=== PATIENT | female | born 1980 | race Caucasian/White ===

== ENCOUNTER → 2020-05-07 11:52 | Outpatient (BNVA) | payer OTHER, SELFPAY | PROVIDERS: PCP Internal Medicine; Referring Provider Internal Medicine; Visit Provider Internal Medicine | DX: E04.2 Nontoxic multinodular goiter (principal); E55.9 Vitamin D deficiency, unspecified; E66.01 Morbid (severe) obesity due to excess calories; Z68.41 Body mass index [BMI] 40.0-44.9, adult; Z98.890 Other specified postprocedural states | CPT/HCPCS: 99214 ==

== ENCOUNTER 2020-06-19 12:31 | Outpatient (REF) | payer OTHER, SELFPAY ==
[2020-06-19 14:42] LABS: Hematocrit 44.8 % (37-47); Hemoglobin 14.8 g/dl (12.0-16.0); Mean Corpuscular Hemoglobin 29.9 pg (27.0-33.0); Mean Corpuscular Volume 90.5 fL (80-98); Mean Platelet Volume 10.8 fL (9.4-12.3); Platelet Count 336 X10*3/uL (160-400); Red Blood Count 4.95 X10*6/uL (4.20-5.50); Red Cell Distribution Width 12.2 % (11.0-16.0); White Blood Count 10.7 X10*3/uL (4.8-10.8)
[2020-06-19 15:08] LABS: Alanine Aminotransferase 43 U/L (0-31); Albumin Level 4.4 g/dL (3.5-5.0); Alkaline Phosphatase 81 U/L (39-117); Anion Gap 11 (12-20); Aspartate Amino Transferase 23 U/L (5-31); Bilirubin Total 0.4 mg/dL (0.0-1.0); Blood Urea Nitrogen 11 mg/dL (9-16); Calcium 8.7 mg/dL (8.4-10.2); Carbon Dioxide 26 mmol/L (22-29); Chloride 105 mmol/L (96-108); Cholesterol 238 mg/dL; Estimated Glomerular Filt Rate > 60; Glucose Fasting 93 mg/dL (60-99); HDL Cholesterol 48 mg/dL; LDL Cholesterol Calculated 161 mg/dl; Potassium 4.4 mmol/l (3.3-5.1); Sodium 138 mmol/L (135-145); Total Protein 6.9 g/dL (6.5-8.0); Triglycerides 145 mg/dL
[2020-06-19 15:32] LABS: Thyroid Stimulating Hormone 1.01 uIU/mL (0.32-4.0)
== END 2020-06-19 12:32 | disposition home or self-care (01) ==
LOC: HO.HMGCLDS 12:31
PROVIDERS: PCP Internal Medicine; Visit Provider Internal Medicine
DX: Z00.00 Encounter for general adult medical examination without abnormal findings (principal); E78.5 Hyperlipidemia, unspecified; E66.3 Overweight; E04.1 Nontoxic single thyroid nodule; F17.200 Nicotine dependence, unspecified, uncomplicated
CPT/HCPCS: 36415; 80053; 80061; 84443; 85027

== ENCOUNTER 2021-01-15 10:07 | Outpatient (REF) | payer OTHER, SELFPAY ==
[2021-01-15 11:18] LABS: MANUAL DIFF FLAG NO
[2021-01-15 11:29] LABS: Basophils Absolute Auto 0.1 X10*3/uL (0.0-0.2); Basophils Percent Auto 0.8 % (0-2); Eosinophils Absolute Auto 0.2 X10*3/uL (0.0-0.4); Eosinophils Percent Auto 1.8 % (0-4); Hemoglobin 13.7 g/dl (12.0-16.0); Imm Gran Abs Auto 0.05 X10*3/uL (0.00-0.03); Imm Gran Pct Auto 0.5 % (0.0-0.4); Lymphocytes Absolute Auto 3.9 X10*3/uL (1.2-4.9); Lymphocytes Percent Auto 37.2 % (20-40); Mean Corpuscular HGB Conc 32.6 g/dl (31.0-35.0); Mean Corpuscular Hemoglobin 30.1 pg (27.0-33.0); Mean Corpuscular Volume 92.3 fL (80-98); Mean Platelet Volume 10.6 fL (9.4-12.3); Monocytes Absolute Auto 0.8 X10*3/uL (0.1-1.2); Monocytes Percent Auto 7.3 % (2-11); Neutrophils Absolute Auto 5.5 X10*3/uL (2.0-8.3); Neutrophils Percent Auto 52.4 % (45-73); Platelet Count 322 X10*3/uL (160-400); Red Blood Count 4.55 X10*6/uL (4.20-5.50); Red Cell Distribution Width 12.2 % (11.0-16.0); White Blood Count 10.5 X10*3/uL (4.8-10.8)
[2021-01-15 12:21] LABS: TSH reflex Free T4 0.75 uIU/mL (0.32-4.0)
[2021-01-15 12:49] LABS: Alanine Aminotransferase 40 U/L (0-31); Alkaline Phosphatase 76 U/L (39-117); Anion Gap 12 (12-20); Aspartate Amino Transferase 25 U/L (5-31); Bilirubin Total 0.4 mg/dL (0.0-1.0); Blood Urea Nitrogen 13 mg/dL (9-16); Calcium 8.8 mg/dL (8.4-10.2); Carbon Dioxide 24 mmol/L (22-29); Chloride 107 mmol/L (96-108); Cholesterol 201 mg/dL; Estimated Glomerular Filt Rate > 60; Glucose Fasting 86 mg/dL (60-99); HDL Cholesterol 48 mg/dL; LDL Cholesterol Calculated 125 mg/dl; Potassium 4.5 mmol/L (3.3-5.1); Sodium 138 mmol/L (135-145); Total Protein 6.5 g/dL (6.5-8.0); Triglycerides 143 mg/dL
== END 2021-01-15 10:08 | disposition home or self-care (01) ==
LOC: HO.HMGCLDS 10:07
PROVIDERS: PCP Internal Medicine; Visit Provider Nurse Practitioner Psychiatric/Mental Health
DX: F31.81 Bipolar II disorder (principal)
CPT/HCPCS: 36415; 80053; 80061; 84443; 85025

== ENCOUNTER 2022-03-08 10:08 | Outpatient (REF) | payer OTHER, SELFPAY ==
[2022-03-08 11:22] LABS: MANUAL DIFF FLAG NO
[2022-03-08 11:42] LABS: Estimated Average Glucose 105 mg/dL; Hemoglobin A1c % 5.3 %
[2022-03-08 11:45] LABS: Basophils Absolute Auto 0.1 X10*3/uL (0.0-0.2); Basophils Percent Auto 0.7 % (0-2); Eosinophils Absolute Auto 0.2 X10*3/uL (0.0-0.4); Eosinophils Percent Auto 2.6 % (0-4); Hematocrit 43.4 % (37.0-47.0); Hemoglobin 14.3 g/dl (12.0-16.0); Imm Gran Abs Auto 0.03 X10*3/uL (0.00-0.03); Imm Gran Pct Auto 0.3 % (0.0-0.4); Lymphocytes Absolute Auto 3.6 X10*3/uL (1.2-4.9); Lymphocytes Percent Auto 39.6 % (20-40); Mean Corpuscular HGB Conc 32.9 g/dl (31.0-35.0); Mean Platelet Volume 10.8 fL (9.4-12.3); Monocytes Absolute Auto 0.6 X10*3/uL (0.1-1.2); Monocytes Percent Auto 6.6 % (2-11); Neutrophils Absolute Auto 4.5 x10*3/uL (2.0-8.3); Neutrophils Percent Auto 50.2 % (45-73); Platelet Count 311 X10*3/uL (160-400); Red Blood Count 4.77 X10*6/uL (4.20-5.50); Red Cell Distribution Width 12.3 % (11.0-16.0)
[2022-03-08 12:20] LABS: TSH reflex Free T4 0.67 uIU/mL (0.32-4.0)
[2022-03-08 12:30] LABS: Alanine Aminotransferase 33 U/L (0-31); Albumin Level 4.2 g/dL (3.5-5.0); Alkaline Phosphatase 72 U/L (39-117); Anion Gap 14 (12-20); Aspartate Amino Transferase 26 U/L (5-31); Bilirubin Total 0.3 mg/dL (0.0-1.0); Blood Urea Nitrogen 14 mg/dL (9-16); Calcium 9.2 mg/dL (8.4-10.2); Carbon Dioxide 24 mmol/L (22-29); Chloride 108 mmol/L (96-108); Cholesterol 228 mg/dL; Estimated Glomerular Filt Rate > 60; Glucose Fasting 95 mg/dL (60-99); HDL Cholesterol 48 mg/dL; LDL Cholesterol Calculated 159 mg/dl; Potassium 4.3 mmol/L (3.3-5.1); Sodium 142 mmol/L (135-145); Total Protein 6.8 g/dL (6.5-8.0); Triglycerides 109 mg/dL
== END 2022-03-08 10:09 | disposition home or self-care (01) ==
LOC: HO.HMGCLDS 10:08
PROVIDERS: PCP Internal Medicine; Visit Provider Nurse Practitioner Psychiatric/Mental Health
DX: F31.81 Bipolar II disorder (principal)
CPT/HCPCS: 36415; 80053; 80061; 82947; 83036; 84443; 85025

== ENCOUNTER 2023-02-25 11:15 | Outpatient (AMB) | payer OTHER, SELFPAY ==
[2023-02-25 11:24] VITALS: BP 130/64; PULSE 90; TEMP 36.8; O2SAT 98
--- NOTE | 2023-02-25 11:24 | MHC.OFFWIV ---
Intake Vital Signs 02/25/23 11:24 Height 5 ft 9 in BP 130/64 Blood Pressure Location Lt brachial Position Sitting Pulse 90 Pulse Source Pulse Oximeter Temp 98.2 F Temp Source Oral Pulse Oximetry (%) 98 Oxygen Delivery Method Room Air Intake Visit Reasons: EST/swollen right eye Intake Note: pt is here for c/o right swollen eye Patient Tobacco Use Status: Never used Tobacco Allergies No Known Allergies [No Known Allergies*] Allergy (Verified 02/25/23 11:24) Do you need a note to return to daycare/school/sports/work: No HPI HPI Comments History of Present Illness Details This is a 42-year-old female who presents to the office today for sick visit. Patient complaining of right upper eyelid swelling x4 days. Patient states she woke up with swelling of her right eyelid about 4 days ago. She has been utilizing warm and cool compresses, oral antihistamines, and [id number] eye drops without relief. Patient reports pain of the upper eyelid but no eyeball pain. She denies any vision changes. She denies any eye drainage. Patient otherwise feeling well. [facility] Medical History Anxiety Bipolar disorder Multinodular thyroid Obesity Vitamin D deficiency Surgical History Left breast abscess Family History Mother Myocardial infarct Heart failure CAD (coronary artery disease) Breast cancer Social History Alcohol intake: never Patient Tobacco Use Status: Never used Tobacco Cigarette Packs Per Day: 1 Cigarettes Per Day: 20.0 Years Smoked: 22 Substance Use Type: Marijuana Review of Systems Const All systems reviewed & are unremarkable except as noted in HPI and below Reports no additional complaints Eyes Details: +eyelid swelling Reports no additional complaints, Denies change in vision, Denies eye discharge, Denies dry eyes, Denies loss of vision and Denies other visual disturbances ENT Reports no additional complaints Card Reports no additional complaints Resp Reports no additional complaints GI Reports no additional complaints Musc Reports no additional complaints Skin/Breast Reports system reviewed and no additional complaints, except as documented Neuro Reports no additional complaints and Denies loss of vision Psych Reports no additional complaints Endo Reports no additional complaints Vinay/Lymph Reports no additional complaints Aller/Immun Reports no additional complaints Physical Exam Vital Signs: Last Vital Signs Temp 98.2 F 02/25/23 11:24 Pulse 90 02/25/23 11:24 BP 130/64 02/25/23 11:24 Pulse Ox 98 02/25/23 11:24 Oxygen Delivery Method Room Air 02/25/23 11:24 Const General: cooperative, healthy appearing, no acute distress and well developed Orientation/consciousness: patient oriented x3 HEENT Head: Yes normal to inspection Ears: hearing grossly normal bilaterally General nose exam: Normal external nose present Face and sinus: Yes normal facial exam Mouth: Normal oral and palatal mucosa present Eyes Other: Swelling of the right upper eyelid without any erythema. + Internal hordeolum of the right upper eyelid. Visual Cerda: normal visual cerda by confrontation Eyelids: Yes eyelid abnormality (Right eyelid swelling.) Conjunctivae: conjunctivae normal Sclerae: sclerae normal Corneas: corneas normal Pupils: Equal, round and reactive pupils present EOM: EOMs intact bilaterally Resp Effort & Inspection: normal respiratory effort and no respiratory distress Auscultation: clear to auscultation bilaterally Cardio Rate: regular rate Rhythm: regular rhythm Heart sounds: no gallops, no murmurs and no rubs Peripheral pulses: Peripheral pulses 2+ throughout GI Inspection: No distended Palpation (GI): Soft to palpation and nontender Auscultation: normal bowel sounds Skin General skin exam: no rashes or lesions noted Neuro General: patient oriented x3 Cranial nerves: Yes CN's II-XII intact bilaterally and Yes Equal, round and reactive pupils present Gait exam (Neuro): Normal gait present Motor exam (neuro): 5/5 motor strength present throughout Extrem General: Yes normal to inspection, Yes full ROM and Yes no clubbing, cyanosis or edema Psych Appearance: grossly normal Mental Status: mental status grossly normal Assessment & Plan Assessment & Plan (1) Hordeolum: Code(s): H00.019 - Hordeolum externum unspecified eye, unspecified eyelid Plan: This is a 42-year-old female presenting to the office with right upper eyelid swelling. History and physical most consistent with an internal hordeolum versus blepharitis of the right upper eyelid. No evidence of conjunctivitis or periorbital cellulitis. Patient sent home erythromycin ophthalmic ointment 4 times daily to the right eye. Patient instructed to continue with oral antihistamines and warm/cool compresses. Patient instructed to follow-up year ago to the emergency room for any persistent worsening symptoms, eye drainage, eye pain, or visual changes. Patient verbalized understanding and is agreeable with the plan. Medications: New erythromycin 0.5 inches ophthalmic (eye) QID 3.5 grams 0RF Coding Level of Care Code Est Pt Level 3 (02385) Diagnoses Hordeolum H00.019
== END 2023-02-25 11:57 | disposition home or self-care (01) ==
PROVIDERS: PCP Internal Medicine; Visit Provider Physician Assistant Medical
DX: H00.019 Hordeolum externum unspecified eye, unspecified eyelid (principal)
CPT/HCPCS: 99213

== ENCOUNTER 2025-05-26 09:48 | Outpatient (AMB) | payer OTHER, SELFPAY ==
--- NOTE | 2025-05-26 09:51 | A.OFFPC_ITS ---
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 Transferring care from [facility]. Medical records have been requested and have not received. Licensed Physical Therapist Assistant Required: No Bankruptcy Legal Assistant: Not Required per policy Accompanied by: Self / Same As Patient Allergies No Known Allergies (No Known Allergies*) Allergy (Verified 05/26/25 09:52) Medication List - Last Reconciled 05/26/25 by Chantel Grimm MD aripiprazole 5 mg PO DAILY clonazepam 0.5 mg PO DAILY PRN lamotrigine 125 mg PO DAILY progesterone micronized 100 mg PO QAM Tobacco use date assessed: 05/26/25 Dental Screening Dental Screen Date: 05/26/25 Did you have a dental visit in the last 12 months?: No Did you have a dental problem in the last 6 months where you did not have access to dental care?: No Was dental information given to patient?: No HPI HPI Comments History of Present Illness Details The patient is a 44-year-old female [facility]. The patient reports experiencing menopause for approximately seven years, having ceased menstruation at age 37. She has been exploring hormone replacement ther apy but expresses concerns about potential side effects, including leg swelling and the risk of blood clots. The patient has been using progesterone but has recently stopped due to these concerns. Gastrointestinal issues include upper and lower abdominal bloating, alternating constipation and diarrhea, and increased gas. The patient has made significant dietary changes, eliminating red meat, sugars, and gluten, which initially improved symptoms but have since regressed. She reports a lack of energy and difficulty concentrating, which she attributes to her gastrointestinal symptoms and dietary restrictions. The patient experiences anxiety, particularly related to driving and sleeping, which she associates with menopause. She uses clonazepam to manage nighttime anxiety and facilitate sleep. The patient reports a history of fungal infections, particularly in areas of skin folds and between toes, which she manages with topical creams. She notes that sugar intake exacerbates these infections. The patient has a family history of breast cancer in her mother and lung cancer in her sister, who recently . She is concerned about her own risk factors and is proactive in seeking preventative care, including a recent tetanus vaccination. [facility] Medical History (Updated 05/26/25 @ 12:29 by Chantel Grimm MD) Anxiety Bipolar disorder Obesity Vitamin D deficiency Multinodular thyroid Surgical History (Updated 05/26/25 @ 10:07 by JOSÉ MIGUEL Wheeler) History of cervical biopsy History of endoscopy Left breast abscess Family History (Updated 05/26/25 @ 10:08 by JOSÉ MIGUEL Wheeler) Mother Myocardial infarct Heart failure CAD (coronary artery disease) Breast cancer Other Mental health disorder Substance use disorder Social History (Updated 05/26/25 @ 10:08 by JOSÉ MIGUEL Wheeler) Housing: House Alcohol intake: never Patient Tobacco Use Status: Former Tobacco user Cigarette Packs Per Day: 1 Cigarettes Per Day: 20.0 Years Smoked: 22 e-Cigarette/Vaping Use: Currently Using Second Hand Smoke Exposure: Yes Substance Use Type: Marijuana service: No Current occupational status: disabled Cognitive needs: No Hearing needs: No Vision needs: Yes (Glasses) Questionnaire PHQ-9 Over the last 2 weeks, how often have you been bothered by any of the following problems? 1. Little interest or pleasure in doing things: several days 2. Feeling down, depressed, or hopeless: several days 3. Trouble falling or staying asleep, or sleeping too much: several days 4. Feeling tired or having little energy: several days 5. Poor appetite or overeating: several days 6. Feeling bad about yourself - or that you are a failure or have let yourself or your family down: not at all 7. Trouble concentrating on things, such as reading the newspaper or watching television: several days 8. Moving or speaking so slowly that other people could have noticed. Or the opposite - being so fidgety or restless that you have been moving around a lot more than usual: not at all 9. Thoughts that you would be better off or of hurting yourself in some way: not at all Total score: 6 Depression Screening Interpretation: Positive Depression Screening Done: Yes Source: Developed by Drs. Yaw Little, wGen Sauceda, De Cole and colleagues, with an educational danisha from [employer]. Thrive Questionnaire Date Thrive assessed: 05/19/25 I am a: Patient What is your living situation today?: I have a steady place to live Within the past 12 months, did the food you bought not last and you didn't have the money to get more?: Never true Within the past 12 months, did you worry whether your food would run out before you got money to buy more?: Never true Do you have trouble paying for medicines?: No Do you have trouble getting transportation to medical appointments?: No Do you have trouble paying your heating and electricity bill?: No Do you have trouble taking care of your child, family member or friend?: No Do you have trouble with day-to-day activities such as bathing, preparing meals, shopping, managing finances, etc.?: No Are you currently unemployed and looking for a job?: No Are you interested in more education?: No Please select the resources that you would like help with: None Currently or been in a relationship where the following occur: No concerns reported THRIVE Score: 0 AUDIT C Alcohol Use Questionnaire (AUDIT-C) 1. How often do you have a drink containing alcohol?: Never 2. How many drinks containing alcohol do you have on a typical day when you are drinking?: 1 or 2 3. How often do you have six or more drinks on one occasion?: Never Total Score: 0 EDDIE-7 AMB Questionnaire EDDIE-7 Date EDDIE - 7 assessed: 05/26/25 Feeling nervous, anxious, or on edge: 1 = Several days Not being able to stop or control worryin = Several days Worrying too much about different things: 1 = Several days Trouble relaxin = Several days Being so restless that it is hard to sit still: 1 = Several days Becoming easily annoyed or irritable: 1 = Several days Feeling afraid as if something awful might happen: 1 = Several days Total EDDIE-7 score (0-4 normal; 5-9 mild; 10-14 moderate; 15-21 severe): 7 Source: Developed by Drs. Yaw Little, De Kinnye and colleagues, with an educational danisha from [employer]. Review of Systems Const Details: Positives besides what was mentioned in HPI are in BOLD Constitutional: No Weight Change, No Fever, No Chills, No Night Sweats, No Fatigue, No Malaise ENT/Mouth: No Hearing Changes, No Ear Pain, No Nasal Congestion, No Sinus Pain, No Hoarseness, No sore throat, No Rhinorrhea, No Swallowing Difficulty Eyes: No Eye Pain, No Swelling, No Redness, No Foreign Body, No Discharge, No Vision Changes Cardiovascular: No Chest Pain, No SOB, No PND, No Dyspnea on Exertion, No Orthopnea, No Claudication, No Edema, No Palpitations Respiratory: No Cough, No Sputum, No Wheezing, No Smoke Exposure, No Dyspnea Gastrointestinal: No Nausea, No Vomiting, No Diarrhea, No Constipation, No Pain, No Heartburn, No Anorexia, No Dysphagia, No Hematochezia, No Melena, No Flatulence, No Jaundice Genitourinary: No Dysmenorrhea, No DUB, No Dyspareunia, No Dysuria, No Urinary Frequency, No Hematuria, No Urinary Incontinence, No Urgency, No Flank Pain, No Urinary Flow Changes, No Hesitancy Musculoskeletal: No Arthralgias, No Myalgias, No Joint Swelling, No Joint Stiffness, No Back Pain, No Neck Pain, No Injury History Skin: No Skin Lesions, No Pruritis, No Hair Changes, No Breast/Skin Changes, No Nipple Discharge Neuro: No Weakness, No Numbness, No Paresthesias, No Loss of Consciousness, No Syncope, No Dizziness, No Headache, No Coordination Changes, No Recent Falls Psych: No Anxiety/Panic, No Depression, No Insomnia, No Personality Changes, No Delusions, No Rumination, No SI/HI/AH/VH, No Social Issues, No Memory Changes, No Violence/Abuse Hx., No Eating Concerns Heme/Lymph: No Bruising, No Bleeding, No Transfusions History, No Lymphadenopathy Endocrine: No Polyuria, No Polydipsia, No Temperature Intolerance Physical exam (Primary Care) Vital Signs: Last Vital Signs Temp 97.5 F 05/26/25 09:53 Pulse 80 05/26/25 09:53 BP 100/68 05/26/25 09:53 Pulse Ox 97 05/26/25 09:53 Oxygen Delivery Method Room Air 05/26/25 09:53 BMI result Body Mass Index 41.9 Tobacco/Smoking Status: Tobacco use Status Tobacco use date assessed 05/26/25 05/26/25 10:03 Patient Tobacco Use Status Former Tobacco user 05/26/25 10:10 e-Cigarette/Vaping Use Currently Using 05/26/25 10:10 PHQ-9: PHQ-9 Score PHQ-9: Total score 6 05/26/25 10:32 Depression Screening Interpretation: Positive Thrive Assessment: Date of Thrive Assessment Date Thrive assessed 05/19/25 05/26/25 10:03 Currently or been in a relationship where the following occur: No concerns reported Const Other: Pertinent findings are in BOLD GENERAL APPEARANCE NAD, activity normal for age, well developed/ well nourished, no cyanosis, pallor, or diaphoresis. EYES lids/conjunctiva normal. EARS/NOSE/THROAT Mucous membranes moist, nares normal, lips/teeth normal uvula midline without oral pharyngeal erythema, exudate or swelling TMs normal bilaterally. No lymphangitis/lymphedema. HEAD/NECK normocephalic atraumatic, no facial trauma, neck is supple. RESPIRATORY respiratory effort normal, speaks in full sentences, no tripod position, no accessory muscle use. Lungs clear to auscultation without rhonchi, wheezes, rales CARDIAC Regular rate and rhythm, no edema. ABDOMINAL Soft, ND/NT. No evidence of fluid wave. No pulsatile masses on exam, rebound tenderness, Waller sign or pain over Mcburney's point. MUSCLES/EXTREMITIES No abnormal range of motion, no swelling. SKIN Warm, pink and dry. No rashes, dermatoses, petechiae or lesions. NEUROLOGICAL Speech is clear and appropriate. Normal level of consciousness. Gait and coordination are normal. 5/5 strength in all extremities. PSYCH Normal mood and affect. Judgement/competence is appropriate Immunizations Boostrix Tdap 2.5 Lf unit-8 mcg-5 Lf/0.5 mL intramuscular syringe Performing Provider: Chantel Grimm MD [facility] Administered by: JOSÉ MIGUEL Magana on 05/26/25 10:41 Dose Route Admin Location Dispensed Lot Number Expiration Date [facility] Granite Cutter 0.5 mL IM Right Deltoid 0.5 mL [id number] 05/30/27 [id number] [employer] Total Dispensed Waste 0.5 mL 0 % VIS Given Date VIS Provided VIS Publication Date 05/26/25 Single Vaccine 21 Eligibility Eligibility Date Funding Source Not [facility] Eligible 05/26/25 Private Coding Level of Care Code New Pt Level 4 (40696) New Pt Prev Care 40-64y(55956) Diagnoses Healthcare maintenance Z00.00 Class 3 severe obesity due to excess calories with body mass index (BMI) of 40.0 to 44.9 in adult, unspecified whether serious comorbidity present E66.01; Z68.41 Body mass index: BMI 40.0-44.9 Obesity classification: adult class 3 (BMI >= 40) Obesity type: due to excess calories Serious obesity comorbidity presence: unspecified whether serious comorbidity present Bloating R14.0 Tobacco use disorder F17.200 Generalized anxiety disorder F41.1 Time Spent (min) 30 Assessment & Plan Assessment & Plan (1) Healthcare maintenance: Code(s): Z00.00 - Encounter for general adult medical examination without abnormal findings Category: Medical Plan: CBC, CMP, Lipid panel, A1C, TSH w T4, vit D. Ordered. Shingles 2 doses when >50 yo. Not due yet. COVID: two doses. Not done and deferred. Tdap: Due in 2022. Ordered today. Pneumococcal: 19-64. NI. Flu vaccine: Declined. Colonoscopy: 45-75. Due now. Has GI follow-up. AAA: 65 -75. at [address]. CT lun - 80. at 50. HPV: Last year. Follows with [facility] promotional demonstrator. HIV: Ordered today. HBV: Ordered today. HCV: Ordered today. Dexa: NI. Mammogram: Ordered today. (2) Obesity: Code(s): E66.9 - Obesity, unspecified Category: Medical Qualifiers: Body mass index: BMI 40.0-44.9 Obesity classification: adult class 3 (BMI >= 40) Obesity type: due to excess calories Serious obesity comorbidity presence: unspecified whether serious comorbidity present Qualified Code(s): E 66.01 - Morbid (severe) obesity due to excess calories; Z68.41 - Body mass index [BMI]40.0-44.9, adult Plan: Continue lifestyle modifications with reducing dairy, gluten, sugar and red meat. We will consider weight management referral if patient continues to have issues with obesity. (3) Bloating: Code(s): R14.0 - Abdominal distension (gaseous) Category: Medical Plan: Continue lifestyle modifications with reducing dairy, gluten, sugar and red meat. (4) Tobacco use disorder: Code(s): F17.200 - Nicotine dependence, unspecified, uncomplicated Category: Medical Plan: Tried Shantix in the past but she did not like it due to vivid dreams. She would like to try Nicotine gums. (5) Generalized anxiety disorder: Code(s): F41.1 - Generalized anxiety disorder Category: Medical Plan: Patient follows with psychiatry who is prescribing the following medications: - Aripiprazole 5 mg - Clonazepam 0.5 mg - Lamotrigine 125 mg. Orders: Orders Complete Blood Count no Diff Today Z00.00 - Encounter for general adult medical examination without abnormal findings Hepatitis B Core Antibody Today Z00.00 - Encounter for general adult medical examination without abnormal findings Hemoglobin A1c Today Z00.00 - Encounter for general adult medical examination without abnormal findings TSH reflex Free T4 Today Z00.00 - Encounter for general adult medical examination without abnormal findings Comprehensive Met. Panel Today Z00.00 - Encounter for general adult medical ex amination without abnormal findings HIV Ab/Ag Today Z00.00 - Encounter for general adult medical examination without abnormal findings Hepatitis C Antibody Reflex Today Z00.00 - Encounter for general adult medical examination without abnormal findings Hepatitis B Surface Antigen Today Z00.00 - Encounter for general adult medical examination without abnormal findings Hepatitis B Surface Antibody Today Z00.00 - Encounter for general adult medical examination without abnormal findings Lipid Panel Today Z00.00 - Encounter for general adult medical examination without abnormal findings Vitamin D 25-OH (D2 and D3) Today Z00.00 - Encounter for general adult medical examination without abnormal findings TDaP Immunization Today Z23 - Encounter for immunization Medications: New nicotine (polacrilex) 2 mg buccal Q2H 20 ea 3RF
[2025-05-26 09:53] VITALS: BP 100/68; PULSE 80; TEMP 36.4; O2SAT 97; BMI 41.9
== END 2025-05-26 10:49 | disposition home or self-care (01) ==
LOC: HO.HMCH 09:49
PROVIDERS: PCP Internal Medicine; Visit Provider Internal Medicine
DX: Z00.00 Encounter for general adult medical examination without abnormal findings (principal); E66.01 Morbid (severe) obesity due to excess calories; Z68.41 Body mass index [BMI] 40.0-44.9, adult; R14.0 Abdominal distension (gaseous); F17.200 Nicotine dependence, unspecified, uncomplicated; F41.1 Generalized anxiety disorder; Z23 Encounter for immunization

== ENCOUNTER → 2025-05-26 09:48 | Outpatient (BNVA) | payer OTHER, SELFPAY | PROVIDERS: Visit Provider Internal Medicine | DX: Z00.00 Encounter for general adult medical examination without abnormal findings (principal); Z23 Encounter for immunization; E66.01 Morbid (severe) obesity due to excess calories; Z68.41 Body mass index [BMI] 40.0-44.9, adult; R14.0 Abdominal distension (gaseous); F41.1 Generalized anxiety disorder; F17.210 Nicotine dependence, cigarettes, uncomplicated; Z79.899 Other long term (current) drug therapy; Z13.31 Encounter for screening for depression; Z13.39 Encounter for screening examination for other mental health and behavioral disorders | CPT/HCPCS: 90471; 90715; 96127; 99386 ==

== ENCOUNTER 2025-06-04 09:03 | Outpatient (REF) | payer OTHER, SELFPAY ==
[2025-06-04 09:21] LABS: Hematocrit 43.4 % (37.0-47.0); Hemoglobin 14.5 g/dl (12.0-16.0); Mean Corpuscular HGB Conc 33.4 g/dl (31.0-35.0); Mean Corpuscular Hemoglobin 30.2 pg (27.0-33.0); Mean Corpuscular Volume 90.4 fL (80.0-98.0); NRBC Abs Auto 0.000 X10*3/uL (0.0-0.012); NRBC Pct Auto 0.0 /100WBC (0.0-0.2); Platelet Count 290 X10*3/uL (160-400); Red Blood Count 4.80 X10*6/uL (4.20-5.50); White Blood Count 9.6 X10*3/uL (4.8-10.8)
[2025-06-04 10:05] LABS: Alanine Aminotransferase 31 U/L (0-31); Albumin Level 4.4 g/dL (3.5-5.0); Alkaline Phosphatase 91 U/L (39-117); Anion Gap 11 (12-20); Aspartate Amino Transferase 28 U/L (5-31); Blood Urea Nitrogen 18 mg/dL (9-16); Calcium 9.2 mg/dL (8.4-10.2); Carbon Dioxide 23 mmol/L (22-29); Chloride 110 mmol/L (96-108); Cholesterol 224 mg/dL (<200); Estimated Glomerular Filt Rate > 60; HDL Cholesterol 54 mg/dL (>40); Potassium 4.4 mmol/L (3.3-5.1); Sodium 140 mmol/L (135-145); Total Protein 7.1 g/dL (6.5-8.0); Triglycerides 117 mg/dL (<150)
[2025-06-04 10:08] LABS: HBS Num1 1.03 mIU/mL (0-7.99); HBc Num1 0.10 S/CO (0.00-0.79); HBsAGNum1 0.42 S/CO (0.00-0.99); HIV Num 1 0.06 S/CO (0.00-0.99); Hepatitis B Surface Antigen Negative (Negative); ~HepC Num1 0.08 S/CO (0.00-0.79); ~Hepatitis B Surface Antibody NONREACTIVE (Nonreactive); ~Hepatitis C Antibody Nonreactive (Nonreactive)
--- OUTSIDE RECORDS SUMMARY | 2025-06-04 10:08 | XMS_ITS | Patient Health Record ---
Author Organization [facility] Rob[facility]iah Address [address] [place] [place] [address] Care Team Providers Care Leader Assembler Name Role Phone Blaise Lees NP Primary Care Provider Micah Dixon Unavailable [phone] Allergies Allergen (clinical drug ingredient) Drug/Non Drug Allergy documented on EMR Reaction Allergy Type Onset Date Status ibuprofen Advil Unknown Drug Allergy Active Adhesive Unknown Allergy Active Reason For Referral No Information Medications Medication SIG (Take, Route, Fr equency, Duration) Notes Start Date End Date Status Medrol (Kishor) 4 MG as directed Orally; Duration: 7 days Active Ammonium Lactate 12 % 1 application Exte rnally to affected areas of skin to feet except for between the toes Twice a day; Duration: 30 days A ctive lamoTRIgine Active ARIPiprazole Active clonazePAM Active Nicotine Active DULoxetine HCl Activ e Social History Tobacco Use: Social History Observation Description Date Details (start date - stop date) Former Smoker NA - NA Tobacco Use/Smoking Question Answer Notes Are you a: former smoker Additional Findings: Tobacco Non-User Current no n-smoker Alcohol Screen Question Answer Notes Did you have a drink containing alcohol in the p ast year? No Points 0 Interpretation Negative Tobacco use other than smoking: Question Answer Notes Are you an other tobacco user? Yes V ape Problems Problem Type SNOMED Code ICD Code Onset Dates Problem Status W/U Status Risk Notes Problem Plantar fasciitis of left foot ([id number] 9101) Plantar fasciitis of left foot (M72.2) Active confirmed Plan Of Treatment Pending Test Test Name Order Date X ray : Foot, left 3V 05/16/2024 Insurance Providers Payer Name Payer Address Payer Phone Subscriber Number Group Number Insured Name Patient Relationship to Insured Coverage Start Date Coverage End Date [facility] [employer] Claims [address] [place] [id number] Rachel Jamil Self - patient is the insured Medical (General) History Medical History History ICD Code Anxiety Back pain Depression Fibromyalgia Gout Headaches/Migraines Psoriasis/eczema Psychiatric disorder Chicken pox edema
[2025-06-04 10:54] LABS: Magnesium 2.1 mg/dL (1.6-2.6)
[2025-06-04 11:29] LABS: Folate 8.6 ng/mL (> or = 4.0); Vitamin B12 460 pg/mL (200-900)
[2025-06-07 13:59] LABS: Vitamin D 25-OH, D2 <4 ng/mL; Vitamin D 25-OH, D3 24 ng/mL; Vitamin D 25-OH, Total 24 ng/mL (30-100)
== END 2025-06-04 09:04 | disposition home or self-care (01) ==
LOC: HO.LAB 09:03
PROVIDERS: Absent Provider Nurse Practitioner Family; PCP Internal Medicine; Visit Provider Internal Medicine
DX: Z00.00 Encounter for general adult medical examination without abnormal findings (principal); N18.9 Chronic kidney disease, unspecified; R10.9 Unspecified abdominal pain; R19.7 Diarrhea, unspecified; K21.9 Gastro-esophageal reflux disease without esophagitis; Z12.11 Encounter for screening for malignant neoplasm of colon; Z86.19 Personal history of other infectious and parasitic diseases; R14.0 Abdominal distension (gaseous); Z01.84 Encounter for antibody response examination; Z11.4 Encounter for screening for human immunodeficiency virus [HIV]; Z11.59 Encounter for screening for other viral diseases; Z13.1 Encounter for screening for diabetes mellitus
CPT/HCPCS: 36415; 80053; 80061; 82306; 82607; 82746; 83013; 83036; 83735; 84443; 85027; 86364; 86704; 86706; 86803; 87340; 87389; 99202

== ENCOUNTER 2025-06-04 09:16 | Outpatient (AMB) | payer OTHER, SELFPAY ==
[2025-06-04 09:19] VITALS: BP 112/68; PULSE 68; O2SAT 97; BMI 41.5
--- NOTE | 2025-06-04 09:19 | MHC.OFFVIS ---
Vital Signs 06/04/25 09:19 Height 5 ft 9 in Weight 281 lb BMI 41.5 BP 112/68 Blood Pressure Location Rt brachial Position Sitting Pulse 68 Pulse Source Pulse Oximeter Pulse Oximetry (%) 97 Oxygen Delivery Method Room Air Intake Visit Reasons: [facility] screening Intake Note: New pt for initial colo screening. CC: C.O. intermittent constipation, diarrhea and bloating. Pt states that this has been occurring for many years. and she is still attempting to determine certain food sensitivities. 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 Patient was sent to us by her PCP.? This is her first colonoscopy screening.? Patient reports epigastric pain postprandially. Patient had upper endoscopy last year at [facility]. Was found to have H pylori, treated with antibiotics. Patient was retested and was negative. Recently she continues to have epigastric pain postprandially. Severe abdominal bloating depending on what she eats. Patient is trying to do diet elimination and figuring out what is causing it. Patient is also reporting that she is in early menopause.? Denies any personal or family history of CRC.? Denies history of difficulty with sedation or anesthesia in the past.? Negative for history of sleep apnea.? Denies any history of cardiac, renal, pulmonary, or hepatic disease.?? No history of infectious? diseases like hepatitis A, B, C, HIV or tuberculosis.? Patient is not on any anticoagulation [facility] Medical History (Updated 06/04/25 @ 10:04 by Caro Karimi, [facility]) History of Helicobacter pylori infection Anxiety Bipolar disorder Obesity Vitamin D deficiency Multinodular thyroid Surgical History History of cervical biopsy History of endoscopy Left breast abscess Family History Mother Myocardial infarct Heart failure CAD (coronary artery disease) Breast cancer Other Mental health disorder Substance use disorder Social History Housing: House Alcohol intake: never Patient Tobacco Use Status: Former Tobacco user Cigarette Packs Per Day: 1 Cigarettes Per Day: 20.0 Years Smoked: 22 e-Cigarette/Vaping Use: Currently Using Second Hand Smoke Exposure: Yes Substance Use Type: Marijuana service: No Current occupational status: disabled Cognitive needs: No Hearing needs: No Vision needs: Yes (Glasses) Review of Systems Const Denies weight gain and Denies weight loss ENT Reports no additional complaints, Denies dysphagia and Denies odynophagia Card Reports no additional complaints Resp Reports no additional complaints GI Denies abdominal pain, Denies belching, Denies melena, Denies bloating, Denies change in bowel habits, Denies dysphagia, Denies excessive flatus, Denies dyspepsia, Denies heartburn, Denies diarrhea, Denies loose stools, Denies nausea, Denies odynophagia and Denies vomiting Musc Reports no additional complaints Neuro Reports no additional complaints Psych Reports no additional complaints Endo Reports no additional complaints Physical Exam Vital Signs: Last Vital Signs Pulse 68 06/04/25 09:19 BP 112/68 06/04/25 09:19 Pulse Ox 97 06/04/25 09:19 Oxygen Delivery Method Room Air 06/04/25 09:19 BMI result Body Mass Index 41.5 Const General: healthy appearing, no acute distress and well developed Nutritional Appearance: well nourished Orientation/consciousness: patient oriented x3 Resp Effort & Inspection: normal respiratory effort, able to speak in complete sentences, no tracheal deviation and symmetric chest movement Auscultation: clear to auscultation bilaterally Cardio Rate: regular rate GI Inspection: Yes normal to inspection and No distended Palpation (GI): Soft to palpation, not firm, nontender and No hepatosplenomegaly present Auscultation: normal bowel sounds General: Yes no CVA tenderness Back/Spine/Pelvis Back: no CVA tenderness Skin General skin exam: elasticity normal, turgor normal and dry skin Neuro General: patient oriented x3 Psych Appearance: grossly normal Mental Status: mental status grossly normal Assessment & Plan Assessment & Plan (1) Screen for colon cancer: Code(s): Z12.11 - Encounter for screening for malignant neoplasm of colon (2) History of Helicobacter pylori infection: Code(s): Z86.19 - Personal history of other infectious and parasitic diseases Category: Medical (3) Postprandial abdominal bloating: Code(s): R14.0 - Abdominal distension (gaseous) (4) GERD (gastroesophageal reflux disease): Code(s): K21.9 - Gastro-esophageal reflux disease without esophagitis Qualifiers: Esophagitis presence: esophagitis presence not specified Qualified Code(s): K21.9 - Gastro-esophageal reflux disease without esophagitis Plan Patient denies any cardiac or respiratory symptoms.? However patient reports frequent postprandial abdominal bloating and loose stools. Patient reports that when she empties her bowels does not feel like she empties them completely. Several bowel movements a day. Patient will start taking Dulcolax as needed. Patient was told that she has a fatty liver will check ultrasound with liver elastography. Patient reports epigastric pain and postprandial abdominal bloating. Will check for H pylori to see if it is back. History of H pylori year ago. Will treat empirically if positive. Patient will be sent for upper endoscopy to rule out gastritis, esophagitis, duodenitis, H pylori, gastric or peptic ulcers. Will check transglutaminase, vitamin B12 and folate. Denies any issues with anesthesia in the past.? Denies any history of sleep apnea.? No history infectious diseases in the past or present.? Not on any anticoagulation therapy.? No family or personal history of colon cancer or polyps.? Patient denies melena, hematochezia, unintentional weight loss or ribbon like stools.? Discussed at length the pre-procedure,? prep, diet & medications as well as what to expect prior, during and after the procedure.?? Stressed the importance of good bowel prep.? Recommended the use of Vaseline or Calmoseptine OTC & baby wipes with bowel movements to promote comfort.? ?Patient verbalizes understanding and agrees to plan of care.? She was given the opportunity to ask questions and all questions answered.? We will see her after the procedure.? Orders: Orders H Pylori Breath Test Today K21.9 - Gastro-esophageal reflux disease without esophagitis Transglutaminase IgA Today R10.9 - Unspecified abdominal pain Magnesium Today N18.9 - Chronic kidney disease, unspecified Vitamin B12 and Folate Today R19.7 - Diarrhea, unspecified US abdomen comp w elastography Today R79.89 - Other specified abnormal findings of blood chemistry Medications: New bisacodyl (Dulcolax (bisacodyl)) 10 mg (2 x 5 mg) PO BEDTIME 180 tabs 4RF polyethylene glycol 3350 (Miralax) As directed by gastroenterology department at [facility] 238 grams PO ONCE 238 grams 0RF Z12.11 - Encounter for screening for malignant neoplasm of colon Coding Level of Care Code New Pt Level 4 (98253) Diagnoses Screen for colon cancer Z12.11 History of Helicobacter pylori infection Z86.19 Postprandial abdominal bloating R14.0 Gastroesophageal reflux disease, unspecified whether esophagitis present K21.9 Esophagitis presence: esophagitis presence not specified Time Spent (min) 50 Comment 35 minutes spent with patient and additional 15 minutes spent reviewing her records
== END 2025-06-04 10:09 | disposition home or self-care (01) ==
LOC: HO.HGI 09:17
PROVIDERS: Visit Provider Nurse Practitioner Family
DX: R14.0 Abdominal distension (gaseous) (principal); R10.13 Epigastric pain; K21.9 Gastro-esophageal reflux disease without esophagitis; Z86.19 Personal history of other infectious and parasitic diseases
CPT/HCPCS: 99204